=== PATIENT | female | born 2000 | race Caucasian/White ===

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

== ENCOUNTER → 2020-07-24 14:32 | Outpatient (CLI) | payer OTHER, SELFPAY ==
[2020-07-24 15:23] LABS: Basophils % 0.4 % (0.1-2.0); Eosinophils # 0.3 K/mm3 (0.0-0.4); Eosinophils % 2.7 % (0.1-12.0); Hematocrit 47.5 % (37.0-47.0); Hemoglobin 15.2 g/dL (12.2-16.2); Lymphocytes # 2.6 K/mm3 (0.7-4.5); Mean Corpuscular HGB Conc 32.1 g/dL (31.8-35.4); Mean Corpuscular Hemoglobin 30.1 pg (27.0-31.2); Mean Corpuscular Volume 93.9 fl (81-99); Mean Platelet Volume 9.3 fl (7.4-10.4); Monocytes # 0.5 K/mm3 (0.1-1.0); Monocytes % 4.9 % (1.7-9.3); Neutrophils % 64.1 % (37.0-80.0); Platelet Count 233 K/mm3 (142-424); Red Blood Count 5.06 M/mm3 (4.20-5.40); Red Cell Distribution Width 13.6 % (11.5-17.5); White Blood Count 9.4 K/mm3 (4.8-10.8)
[2020-07-24 15:28] LABS: Alanine Aminotransferase 21 U/L (12-78); Albumin Level 4.6 g/dl (3.5-5.0); Albumin/Globulin Ratio 1.6 (1.1-1.8); Alkaline Phosphatase 87 U/L (38-126); Anion Gap 12.1 mEq/L (5-15); Aspartate Amino Transferase 30 U/L (14-36); Bilirubin,Total 0.9 mg/dl (0.2-1.3); Blood Urea Nitrogen 12 mg/dl (7-17); Calcium 9.3 mg/dl (8.4-10.2); Carbon Dioxide 26 mmol/L (22.0-30.0); Chloride 104 mmol/L (98-107); Chol/HDL Ratio 3.4 (1-3.5); Cholesterol 170 mg/dl (140-200); Estimated Glomerular Filt Rate 106 ml/min (>60); GFR (African American) 128 ML/MIN (>60); Globulin 2.9 g/dL (1.3-3.2); Glucose 102 mg/dl (74-100); HDL Cholesterol 50 mg/dl (40-60); Potassium 4.1 mmoL/L (3.5-5.1); Sodium 138 mmol/L (136-145); Total Protein,Serum 7.5 g/dl (6.3-8.2); Triglycerides 283 mg/dl (30-150); VLDL Cholesterol 57 mg/dL (0-40)
[2020-07-24 15:39] LABS: Direct LDL Cholesterol 72.59 mg/dL (100-129)
[2020-07-24 15:44] LABS: Free T4 (Free Thyroxine) 0.98 ng/dl (0.78-2.19)
[2020-07-24 15:59] LABS: Thyroid Stimulating Hormone 4.45 uIU/mL (0.465-4.68)
[2020-07-24 16:36] LABS: Erythrocyte Sedimentation Rate 13 mm/hr (0-20)
== END ==
PROVIDERS: Visit Provider Emergency Medicine
DX: K82.9 Disease of gallbladder, unspecified (principal); E55.9 Vitamin D deficiency, unspecified
CPT/HCPCS: 80053; 80061; 82306; 84439; 84443; 85025; 85651

== ENCOUNTER → 2020-08-21 11:54 | Outpatient (CLI) | payer OTHER, SELFPAY ==
[2020-08-21 12:27] LABS: Urine Pregnancy, HCG Qual. Negative (Negative)
== END ==
PROVIDERS: Visit Provider Surgery
DX: Z01.812 Encounter for preprocedural laboratory examination (principal); Z20.822 Contact with and (suspected) exposure to COVID-19; K80.20 Calculus of gallbladder without cholecystitis without obstruction
CPT/HCPCS: 36415; 81025; U0003

== ENCOUNTER 2020-08-23 06:56 | Day surgery (SDC) | payer OTHER, SELFPAY ==
[2020-08-21 10:27] VITALS: BMI 32.1
[2020-08-23] VITALS (9 sets, daily range): BP systolic 105–141; BP diastolic 58–98; PULSE 77–105; RESP 18–24; TEMP 36.1–36.6; O2SAT 94–98
--- NOTE | 2020-08-23 08:05 | P.PN_ITS ---
[facility] Anesthesia Checklist - Patient Identification Patient Identification: Arm Band - Structural Data Admitted From: Home Planned Operative Procedure/s: Lap. cholecystectomy Consent for Planned Operative Procedure(s) Verified: Yes - NPO Status Verified Time NPO: 00:00 - Additional verifications Anesthesia Reactions: No Hx Blood Transfusions: No Blood Transfusion Reaction: No - Airway Assessment C-Spine Mobility Assessed: Yes TMJ Mobility Assessed: Yes Dentition: Good Dentition - Neurological Assessment Level of Consciousness: Awake Hx Seizures: No Numbness or tingling in extremities: No - Anesthesia Plan Anesthesia Risk discussed: Yes Anesthesia Plan: Verified ASA Class: II Anesthesia Type: General [facility] History I have reviewed the patient's past medical history: Yes Medical History: Reports:: Migraine Denies:: Cancer, Diabetes Mellitus Type 1, Diabetes Mellitus Type 2, Internal Pacemaker, MRSA, Pulmonary Embolism, Seizures, Transient Ischemic Attacks (TIA) *Have you ever received a pneumonia vaccine?: No *Have you received a flu vaccine this season?: No Other Medical History: Denies: Blood Transfusion Reaction Anesthesia experience/problems:: None Other Surgeries: Yes: No Previous Surgery. No: Pacemaker Amputation: No Fractures: No - *Social History Last grade of school completed: High school graduate Smoking Status: Current every day smoker Tobacco Type: cigarettes # Packs/Day (cigarettes): 1 Alcohol Intake: current Alcohol Intake Frequency:: holidays/special occasions only Substance Use Type: marijuana *Occupational Status:: employed Housing: house Household Members: family *Travel in the last 8 weeks: None Family Hx:: Diabetes, Stroke
--- NOTE | 2020-08-23 09:18 | HMH.OPNOTE ---
Date of procedure: 08/23/20 Pre-op Diagnosis:: Chronic calculus cholecystitis Post-op Diagnosis:: Same Procedure performed:: Laparoscopic cholecystectomy Surgeon:: Cedrick Courtney MD Anesthesia: [facility] Estimated blood loss (mL): 15 Operative findings:: Pericholecystic fat stranding and fairly severe infundibular thickening Operative note:: After informed consent was obtained, the patient was taken to the operating room and placed in the supine position. General anesthesia was induced and the abdomen was prepped and draped in a sterile fashion. After infiltration with local anesthetic an infraumbilical incision was made. A Veress needle was placed in position. The abdomen was insufflated. A 5 mm optical trocar was placed in position. Under direct visualization, a 12 mm trocar was placed in the subxiphoid position and 2 additional 5 mm trocars were placed in the right upper quadrant. The gallbladder was elevated up and over the liver margin. The tissue around the cystic duct was carefully dissected. 3 clips were placed proximally and the duct was transected with harmonic mitchell. Harmonic mitchell were then utilized to dissect the gallbladder away from the liver margin with careful attention to the control of the cystic artery. The gallbladder was placed in a retrieval bag and removed through the subxiphoid trocar site. The right upper quadrant was thoroughly irrigated. No active bleeding or bile leak was noted. Fascia at the subxiphoid trocar site was reapproximated utilizing the NeoClose device. The remaining trocars were removed. All wounds were irrigated and skin was closed with 4-0 Monocryl in a subcuticular fashion. Steri-Strips were applied. The patient's anesthetic agents were reversed and extubation was completed prior to transfer to recovery in stable condition. Condition: stable Disposition: PACU Specimens:: Gallbladder and contents Complications:: No immediate
--- NOTE | 2020-08-23 09:36 | P.PN_ITS ---
[facility] Anesthesia Record Part I Intake, IV Amount: 600 Estimated blood loss (mL): 100 Urine output (mL): 0 Blood Pressure: 105/58 SaO2: 94 Pulse Rate: 105 Respiratory Rate: 20 Temperature: 97.2 F Patient is:: Awake Stable to PACU at:: 09:29
--- NOTE | 2020-08-26 07:18 | P.PN_ITS ---
[facility] Anesthesia Record Part II Discharge Time: 09:59 Destination: Surgical Day Care (OP Surgery) PACU nurse assessment reviewed?: Yes Patient Condition:: Good Anesthesia Complications:: None Swallowing reflex intact?: Yes Cyanosis?: No Blood Pressure: 140/98 Pulse Rate: 86 Temperature: 97.6 F Mental Status: Alert & Oriented Pain level:: 0 Nausea and/or vomitting:: None Intake, IV Amount: 0
[2020-08-26 07:19] VITALS: BP 140/98; PULSE 86; TEMP 36.4
== END 2020-08-23 10:42 | disposition home or self-care (01) ==
LOC: OR 06:58
PROVIDERS: PCP Emergency Medicine; Visit Provider Surgery
PROC: 0FT44ZZ Resection of Gallbladder, Percutaneous Endoscopic Approach (ICD-10-PCS; CPT 47562; principal; 2020-08-23 08:30)
DX: K80.10 Calculus of gallbladder with chronic cholecystitis without obstruction (principal); G43.909 Migraine, unspecified, not intractable, without status migrainosus; Z83.3 Family history of diabetes mellitus; Z82.3 Family history of stroke
CPT/HCPCS: 47562; 96374; J0131; J2405

== ENCOUNTER 2020-08-27 15:38 | Emergency (ER) | payer OTHER, SELFPAY ==
[2020-08-27 15:38] VITALS: BP 147/87; PULSE 106; RESP 16; O2SAT 100
--- NOTE | 2020-08-27 16:03 | HMH.EDGENADL ---
ED Disposition Clinical Impression: Headache Qualifiers: Headache type: tension-type Headache chronicity pattern: acute headache Intractability: not intractable Qualified Code(s): G44.209 - Tension-type headache, unspecified, not intractable Disposition: Home, Self-Care Condition on Discharge: Good Instructions: DI for Headache Referrals: Provider,Referral, [Primary Care Provider] - - Critical Care Critical Care Time: No Attestation: On 08/27/20, the high probability of a clinically significant, sudden or life threatening deterioration of the following system(s) required my full and direct attention, intervention and personal management. The time I documented below is in addition to time spent performing reported procedures but includes the following listed in this critical care notation. Medical Decision Making - Medical Records Medical records reviewed: Yes: I reviewed the patient's medical records. - [place] Inquiry Pt receiving controlled substance: No Vital Signs: 08/27/20 16:04 08/27/20 16:14 08/27/20 16:31 Temperature 98.6 F Temperature Source Oral Pulse Rate 101 H 97 H Pulse Rate [Right] 100 H Respiratory Rate 18 Blood Pressure 147/95 H 128/67 Blood Pressure [Right Arm] 147/95 H Blood Pressure Mean 108 87 Blood Pressure Mean [Right Arm] 112 Blood Pressure Source [Right Arm] Automatic Cuff Blood Pressure Position [Right Arm] Sitting 02 Sat by Pulse Oximetry 100 100 100 - Lab Data Lab results reviewed: Yes: I reviewed the patient's lab results. Lab Results 08/27/20 15:51: Urine Color Yellow, Urine Appearance Sl cloudy, Urine pH 7.0, Ur Specific [place] 1.020, Urine Protein Trace, Urine Glucose (UA) Negative, Urine Ketones Negative, Urine Blood 2+, Urine Nitrate Negative, Urine Bilirubin Negative, Urine Urobilinogen 0.2, Ur Leukocyte Esterase Negative, Urine RBC 5-10, Urine WBC Occasional, Ur Squamous Epith Cells None, Urine Bacteria None 08/27/20 15:51: Urine HCG, Qual Negative 08/27/20 16:30: Sodium 137, Potassium 4.0, Chloride 100, Carbon Dioxide 27, Anion Gap 14.0, BUN 12, Creatinine 0.90, Estimated Creat Clear 129, Estimated GFR 79, Est GFR ( Amer) 96, Glucose 95, Calcium 9.2, Total Bilirubin 0.9, AST 41 H, ALT 47, Alkaline Phosphatase 78, Total Protein 7.8, Albumin 4.7, Globulin 3.1, Albumin/Globulin Ratio 1.5 Result diagrams: 08/27/20 16:30 Orders (Tests/Meds): ED MEDICATIONS Generic Name Dose Route Start Last Admin Trade Name Freq PRN Reason Stop Dose Admin Sodium Chloride 1,000 mls @ 500 mls/hr 08/27/20 16:15 08/27/20 16:37 Sod Chlor 0.9% 1000ml Bag IV 08/27/20 18:14 500 mls/hr .Q2H ONE Administration Discontinued Medications Generic Name Dose Route Start Last Admin Trade Name Freq PRN Reason Stop Dose Admin Diphenhydramine HCl 50 mg 08/27/20 16:02 08/27/20 16:36 Diphenhydramine 50mg/Ml Vial IV 08/27/20 16:03 50 mg ONCE ONE Administration Sodium Chloride 1,000 mls @ 500 mls/hr 08/27/20 16:15 Sod Chlor 0.9% 1000ml Bag IV 09/26/20 16:14 .Q2H DENIZ Ketorolac Tromethamine 30 mg 08/27/20 16:02 08/27/20 16:37 Ketorolac 30mg/Ml Vial IV 08/27/20 16:03 30 mg ONCE ONE Administration Metoclopramide HCl 10 mg 08/27/20 16:02 08/27/20 16:37 Metoclopramide Hcl 10mg/2ml Vial IVP 08/27/20 16:03 10 mg ONCE ONE Administration ORDERS Category Date Time Status Complete Blood Count Auto Diff Stat Lab 08/27/20 16:30 Received Medical Decision Narrative: Patient appears well. No red flag signs or symptoms of her headache, will treat symptomatically. No signs of meningitis or concern for subarachnoid at this time. Surgical sites appear well and no abdominal pain, this is likely not related to surgery, however will screen for electrolyte abnormalities and screen for liver injury following procedure. Labs unremarkable. Patient reports resolved symptoms on reassessment. Likely just tension headache.
[2020-08-27 16:04] VITALS: BP 147/95; PULSE 101; O2SAT 100
[2020-08-27 16:12] LABS: Microscopic, Urine URINE MICROSCOPIC (MICROSCOPIC)
[2020-08-27 16:14] VITALS: BP 147/95; PULSE 100; RESP 18; TEMP 37; O2SAT 100; BMI 31.2
[2020-08-27 16:15] VITALS: BP 147/95; PULSE 98; RESP 18; O2SAT 100
[2020-08-27 16:18] LABS: Appearance,Urine SL CLOUDY (Clear); Bilirubin,Urine Negative (Negative); Blood, Urine 2+ (Negative); Color,Urine YELLOW (Yellow); Glucose,Urine (UA) Negative (Negative); Ketones,Urine Negative (Negative); Leukocyte Esterase,Urine Negative (Negative); Nitrate,Urine Negative (Negative); Protein,Urine TRACE (Negative); Urobilinogen,Urine 0.2 EU/dl (0.2)
[2020-08-27 16:21] VITALS: BMI 31.2
[2020-08-27 16:23] LABS: Urine Pregnancy, HCG Qual. Negative (Negative)
[2020-08-27 16:31] VITALS: BP 128/67; PULSE 97; O2SAT 100
[2020-08-27 16:40] LABS: Basophils % 0.4 % (0.1-2.0); Eosinophils # 0.1 K/mm3 (0.0-0.4); Eosinophils % 0.9 % (0.1-12.0); Hematocrit 41.4 % (37.0-47.0); Hemoglobin 14.1 g/dL (12.2-16.2); Mean Corpuscular Hemoglobin 30.5 pg (27.0-31.2); Mean Corpuscular Volume 89.8 fl (81-99); Mean Platelet Volume 8.4 fl (7.4-10.4); Monocytes # 0.4 K/mm3 (0.1-1.0); Monocytes % 4.9 % (1.7-9.3); Neutrophils # 6.4 K/mm3 (1.8-7.8); Neutrophils % 81.7 % (37.0-80.0); Platelet Count 187 K/mm3 (142-424); Red Blood Count 4.61 M/mm3 (4.20-5.40); Red Cell Distribution Width 13.5 % (11.5-17.5); White Blood Count 7.9 K/mm3 (4.8-10.8)
[2020-08-27 16:42] LABS: WBC,Urine Occasional #/hpf (0-3)
[2020-08-27 16:47] LABS: Chloride 100 mmol/L (98-107); Sodium 137 mmol/L (136-145)
[2020-08-27 16:50] LABS: Alanine Aminotransferase 47 U/L (12-78); Albumin Level 4.7 g/dl (3.5-5.0); Albumin/Globulin Ratio 1.5 (1.1-1.8); Alkaline Phosphatase 78 U/L (38-126); Aspartate Amino Transferase 41 U/L (14-36); Bilirubin,Total 0.9 mg/dl (0.2-1.3); Blood Urea Nitrogen 12 mg/dl (7-17); Calcium 9.2 mg/dl (8.4-10.2); Carbon Dioxide 27 mmol/L (22.0-30.0); Creatinine Clearance Estimated 129 mL/min (50-200); Estimated Glomerular Filt Rate 79 ml/min (>60); GFR (African American) 96 ML/MIN (>60); Globulin 3.1 g/dL (1.3-3.2); Glucose 95 mg/dl (74-100); Total Protein,Serum 7.8 g/dl (6.3-8.2)
[2020-08-27 17:52] VITALS: BP 128/67; PULSE 96; RESP 16; TEMP 36.7
== END 2020-08-27 17:40 | disposition home or self-care (01) ==
PROVIDERS: Emergency Provider Emergency Medicine
DX: G44.209 Tension-type headache, unspecified, not intractable (principal); F17.210 Nicotine dependence, cigarettes, uncomplicated
CPT/HCPCS: 80053; 81001; 81025; 85025; 96365; 96375; 99282

== ENCOUNTER 2023-02-01 13:31 | Emergency (ER) | payer OTHER, SELFPAY ==
[2023-02-01 13:55] VITALS: BP 153/97; PULSE 81; RESP 20; TEMP 36.9; O2SAT 98; BMI 28.8
--- NOTE | 2023-02-01 14:36 | EXP.UTC ---
Discharge Plan Disposition Patient Disposition: Home, Self-Care Condition: Good Prescriptions Prescriptions: New amoxicillin 875 mg tablet 875 mg PO BID Qty: 20 0RF fluticasone propionate [Flonase Allergy Relief] 50 mcg/actuation spray,suspension 1 - 2 spray intranasal DAILY Qty: 16 0RF Rx Instructions: administer into each nostril daily Referrals Follow up/Referrals: Edgar Lopez MD [Primary Care Provider] - See instructions Activity Restrictions/Add. Instructions Additional Instructions/Restrictions: *Monitor Temp, Over the counter Motrin or Tylenol as directed/as needed Tylenol every 4 hours and Motrin every 6 hours (as long as your family doctor has told you that you can take it) for fever or pain. and straight to ER if unable to lower temp less than 101.0 after medication given Take medication as prescribed *Sleep elevated *Humidifier/Vaporizer *Flonase 2 sprays in each nostril daily but be aware that it may take 2-3 days before you notice improvement Follow up IMMEDIATELY for new or worsening symptoms or no Noticeable improvement over the next 48-72 hours. 911 for difficulty breathing or swallowing Clinical Impressions Clinical Impression: Otitis media Qualifiers: Otitis media type: unspecified Laterality: left Qualified Code(s): H66.92 - Otitis media, unspecified, left ear Instructions Patient Instructions: Ear Infections (Alternative Therapy), Middle Ear Infection Discharge ED Provider: Diane Sood [facility] General Stated complaint: congestion, pain in left ear Mode of Arrival: Ambulatory Source of Information: Patient Limitations: No Limitations Time Seen by Provider: 02/01/23 14:36 Description of Symptoms (Recalled from Triage Doc. by RN): PATIENT C/O LEFT EAR PAIN AND RUNNY NOSE HEENT Symptoms (Recalled from RN notes): Yes Resp Symptoms (Recalled from RN notes): No Skin Symptoms (Recalled from RN notes): No MS Symptoms (Recalled from RN notes): No Functional Status (Recalled from RN notes): WNL History of Present Illness Provider Complaint: Patient states for the last week she has been having pain in her left ear and runny nose States today she feels like she cannot hear out of her left ear very well so she came in to get it checked Related Data Previous Rx's Medication Instructions Recorded amoxicillin 875 mg tablet 875 mg PO BID #20 tabs 02/01/23 fluticasone propionate 50 1 - 2 spray intranasal DAILY #16 02/01/23 mcg/actuation nasal grams spray,suspension (Flonase Allergy Relief) Allergies Allergy/AdvReac Type Severity Reaction Status Date / Time No Known Allergies Allergy Verified 09/04/20 13:47 Worker's Comp Is this a Worker's Comp case?: No [facility] Disclaimer: The information contained in this section may have been updated after the patient was seen, as this information can be updated by other users. Social History Smoking Status: Current every day smoker tobacco type: cigarettes packs per day: 1 second hand exposure: Yes alcohol intake: current substance use type: marijuana current occupational status: employed Travel in the last 8 weeks: None household members: family housing: house current occupational exposures/hazards: No caffeine: Yes ROS Obtained: Yes All systems reviewed & no additional complaints except as documented and Yes Systems reviewed as appropriate & no additional complaints except as documented Constitutional Constitutional: Reports system reviewed and no additional complaints, except as documented and Reports as per HPI ENT Ears, Nose, Mouth, and Throat: Reports system reviewed and no additional complaints, except as documented, Reports as per HPI, Reports otalgia, Reports nasal congestion and Reports nasal discharge Cardiovascular Cardiovascular: Reports system reviewed and no additional complaints, except as documented and Reports as per HPI Respiratory Respiratory: Reports system revi
[2023-02-01 15:04] VITALS: BP 153/97; PULSE 81; RESP 20; TEMP 36.9; O2SAT 98
== END 2023-02-01 15:07 | disposition home or self-care (01) ==
PROVIDERS: Emergency Provider Nurse Practitioner; PCP Internal Medicine Adolescent Medicine
DX: H66.92 Otitis media, unspecified, left ear (principal); R09.81 Nasal congestion; F17.210 Nicotine dependence, cigarettes, uncomplicated
CPT/HCPCS: 99204; 99212; G0463

== ENCOUNTER 2023-03-02 09:44 | Emergency (ER) | payer OTHER, SELFPAY ==
[2023-03-02 09:46] VITALS: BP 144/100; PULSE 83; RESP 16; TEMP 37.2; O2SAT 98; BMI 25.0
[2023-03-02 10:05] VITALS: BP 140/95
--- NOTE | 2023-03-02 10:13 | HMH.EDGENADL ---
Discharge Plan Disposition Patient Disposition: Home, Self-Care Prescriptions Prescriptions: New ciprofloxacin HCl 0.3 % drops See Rx Instructions .ROUTE .COMPLEX Qty: 5 0RF Rx Instructions: put 1-2 drps in affected eye(s) every 2hr up to 8 times/day x2days; then 4 times/day x5days [id number] [Bromfed DM] 2-30-10 mg/5 mL syrup 5 ml PO Q6H PRN (Reason: cold symptoms) Qty: 118 0RF ondansetron 4 mg tablet,disintegrating 4 mg PO Q8H PRN (Reason: nausea and vomiting) 4 Days Qty: 12 0RF No Action amoxicillin 875 mg tablet 875 mg PO BID Qty: 20 0RF fluticasone propionate [Flonase Allergy Relief] 50 mcg/actuation spray,suspension 1 - 2 spray intranasal DAILY Qty: 16 0RF Rx Instructions: administer into each nostril daily Referrals Follow up/Referrals: Edgar Lopez MD [Primary Care Provider] - See instructions Activity Restrictions/Add. Instructions Additional Instructions/Restrictions: At this time it was felt you are safe to be discharged home. If new or worsening symptoms please do not hesitate to return the emergency department. If symptoms persist please follow-up with your family doctor as you are able. Please take your medications as prescribed. Clinical Impressions Clinical Impression: Acute bacterial conjunctivitis, Acute viral syndrome, Abdominal pain Discharge ED Provider: Derrick Ramos General Adult HPI General Chief complaint: Eye Problems Stated complaint: fever, eye irritaion Time Seen by Provider: 03/02/23 09:49 Mode of Arrival: Ambulatory Source of Information: Patient Limitations: No Limitations Description of Symptoms (Recalled from ER Triage Doc. by RN): pt presents with c/o bialteral eye redness and gunk when she wakes up. pt reports abdominal pain ongoing for 1 days, but pt reports she has not had a bm for 3-4 days. pt reports sore throat, and feeling hot yesterday but did not take her temperature. History of Present Illness HPI narrative: Patient is a 23-year-old female with past medical history of previous cholecystectomy who presents emergency department for multiple complaints. Patient states that she has gunk on her right eye holding it matted shut every morning for the last few days with associated sore throat. She has also had subacute right upper quadrant pain that is worse with p.o. intake. No vomiting. Sick contacts with flu at home. No other acute complaints at this time. Related Data Previous Rx's Medication Instructions Recorded amoxicillin 875 mg tablet 875 mg PO BID #20 tabs 02/01/23 fluticasone propionate 50 1 - 2 spray intranasal DAILY #16 02/01/23 mcg/actuation nasal grams spray,suspension (Flonase Allergy Relief) [id number]-ejmjkkhnvnileit-IX 5 ml PO Q6H PRN cold symptoms #118 03/02/23 2 mg-30 mg-10 mg/5 mL oral syrup mL (Bromfed DM) ciprofloxacin HCl 0.3 % eye drops See Rx Instructions ophthalmic 03/02/23 (eye) .COMPLEX #5 mL ondansetron 4 mg disintegrating 4 mg PO Q8H PRN nausea and 03/02/23 tablet vomiting 4 days #12 tabs Allergies Allergy/AdvReac Type Severity Reaction Status Date / Time No Known Allergies Allergy Verified 09/04/20 13:47 [facility] Disclaimer: The information contained in this section may have been updated after the patient was seen, as this information can be updated by other users. Social History Smoking Status: Current every day smoker tobacco type: cigarettes packs per day: 1 second hand exposure: Yes alcohol intake: current substance use type: marijuana current occupational status: employed Travel in the last 8 weeks: None household members: family housing: house current occupational exposures/hazards: No caffeine: Yes ROS Obtained: Yes Systems reviewed as appropriate & no additional complaints except as documented Physical Exam General General appearance: alert and in no apparent distress Head Head exam: atraumatic and
--- NOTE | 2023-03-02 10:16 | CT_ITS ---
FINAL REPORT TECHNIQUE: After the administration of intravenous contrast, axial images were obtained through the abdomen and pelvis by computed tomography. The study was performed with techniques to keep radiation dose as low as reasonably achievable, (ALARA). Individual dose reduction techniques using automated exposure control or adjustment of mA and/or kV according to the patient's size were employed. CLINICAL HISTORY: prev ccy, RUQ pain FINDINGS: Abdomen: The lung bases are clear. The liver parenchyma is homogeneous. The gallbladder is absent. The spleen, pancreas, adrenals and kidneys appear unremarkable. The aorta is normal in caliber. There is no free fluid or adenopathy. Pelvis: The appendix is not identified. The uterus is anteverted. An IUD is present. The ovaries are mildly enlarged. The urinary bladder is unremarkable. There is no free fluid or adenopathy. IMPRESSION: Mildly enlarged ovaries. Reviewed, Interpreted and Dictated by Lonnie Taveras MD Transcribed by Stephani Granado Authenticated and [facility]
[2023-03-02 10:21] LABS: Microscopic, Urine URINE MICROSCOPIC (MICROSCOPIC)
[2023-03-02 10:22] LABS: Appearance,Urine CLEAR (Clear); Blood, Urine 2+ (Negative); Color,Urine YELLOW (Yellow); Glucose,Urine (UA) Negative (Negative); Ketones,Urine 1+ (Negative); Leukocyte Esterase,Urine 1+ (Negative); Nitrate,Urine Negative (Negative); Protein,Urine TRACE (Negative); Specific Gravity, Urine 1.025 (1.005-1.030); Urobilinogen,Urine 0.2 EU/dl (0.2)
[2023-03-02 10:28] LABS: Bilirubin,Urine 1+ (Negative)
[2023-03-02 10:31] LABS: Bacteria,Urine 1+ /lpf; RBC,Urine Occasional #/hpf (0-3)
[2023-03-02 10:45] LABS: Basophils % 0.5 % (0.1-2.0); Eosinophils # 0.2 K/mm3 (0.0-0.4); Eosinophils % 2.1 % (0.1-12.0); Hematocrit 44.6 % (37.0-47.0); Hemoglobin 14.9 g/dL (12.2-16.2); Lymphocytes # 1.3 K/mm3 (0.7-4.5); Lymphocytes % 19.5 % (10-50); Mean Corpuscular HGB Conc 33.4 g/dL (31.8-35.4); Mean Corpuscular Hemoglobin 31.7 pg (27.0-31.2); Mean Corpuscular Volume 94.9 fl (81-99); Mean Platelet Volume 7.8 fl (7.4-10.4); Monocytes # 0.3 K/mm3 (0.1-1.0); Neutrophils # 5.1 K/mm3 (1.8-7.8); Neutrophils % 73.8 % (37.0-80.0); Platelet Count 182 K/mm3 (142-424); White Blood Count 6.9 K/mm3 (4.8-10.8)
[2023-03-02 10:52] LABS: Strep Scrn Group A (Rapid) Negative (Negative)
[2023-03-02 10:53] LABS: Chloride 102 mmol/L (98-107); Potassium 3.4 mmoL/L (3.5-5.1); Sodium 139 mmol/L (136-145)
[2023-03-02 10:55] LABS: Alanine Aminotransferase 24 U/L (12-78); Alkaline Phosphatase 79 U/L (38-126); Aspartate Amino Transferase 34 U/L (14-36); Bilirubin,Total 0.4 mg/dl (0.2-1.3); Blood Urea Nitrogen 12 mg/dl (7-17); Creatinine Clearance Estimated 116 mL/min (50-200); Estimated Glomerular Filt Rate 88 ml/min (>60); GFR (African American) 107 ML/MIN (>60)
[2023-03-02 10:56] LABS: Albumin Level 4.5 g/dl (3.5-5.0); Albumin/Globulin Ratio 1.5 (1.1-1.8); Anion Gap 11.4 mEq/L (5-15); Calcium 8.5 mg/dl (8.4-10.2); Carbon Dioxide 29 mmol/L (22.0-30.0); Globulin 3.1 g/dL (1.3-3.2); Glucose 101 mg/dl (74-100); Lipase 55 U/L (23-300); Total Protein,Serum 7.6 g/dl (6.3-8.2)
[2023-03-02 11:22] LABS: HCG Qualitative, Serum Negative (Negative)
[2023-03-02 11:44] LABS: Coronavirus 19, PCR Not Detected (NotDetected); Influenza A, PCR Not Detected (NotDetected); Influenza B, PCR Not Detected (NotDetected)
--- NOTE | 2023-03-02 11:48 | PC.NURSE ---
pt back to room from ct
--- NOTE | 2023-03-02 13:16 | PC.NURSE ---
call made to radiology to check on status of scans. radiology supervisor reports scan are in locked status.
[2023-03-02 13:40] VITALS: BP 135/87; PULSE 70; RESP 15; TEMP 36.7
--- NOTE | 2023-03-04 14:38 | PC.NURSE ---
Urine final result reported mixed eddie. Dr. Smith concluded that the specimen is contaminated
--- NOTE | 2023-03-05 19:27 | PC.NURSE ---
left a message on messenger to return call to ED.
--- NOTE | 2023-03-05 19:28 | PC.NURSE ---
received cb from patient.
--- NOTE | 2023-03-05 19:35 | PC.NURSE ---
call [facility] and spoke with pharmacist. [facility] 645/125 1 po bid prescription called in under Genesis Ramos MD
== END 2023-03-02 13:41 | disposition home or self-care (01) ==
PROVIDERS: Emergency Provider Emergency Medicine; PCP Internal Medicine Adolescent Medicine
DX: R10.11 Right upper quadrant pain (principal); H10.9 Unspecified conjunctivitis; J02.9 Acute pharyngitis, unspecified; B34.9 Viral infection, unspecified; F17.210 Nicotine dependence, cigarettes, uncomplicated
CPT/HCPCS: 74177; 80053; 81001; 83690; 84703; 85025; 87086; 87430; 87636; 96374; 96375; 99285; J0131; J2405; Q9967

== ENCOUNTER 2023-03-28 11:07 | Emergency (ER) | payer OTHER, SELFPAY ==
[2023-03-28 11:40] VITALS: BP 125/73; PULSE 93; RESP 18; TEMP 36.8; O2SAT 96; BMI 26.9
--- NOTE | 2023-03-28 12:00 | ED_ITS ---
Discharge Plan Disposition Patient Disposition: Home, Self-Care Condition: Good Prescriptions Prescriptions: New methylprednisolone 4 mg Tablets,Dose Pack 4 mg PO DIRECTED 6 Days Qty: 21 0RF Rx Instructions: Take 1 pack as directed for 6 days ondansetron 4 mg Tablet,Disintegrating 4 mg PO Q8H PRN (Reason: Nausea) Qty: 12 0RF cefdinir 300 mg capsule 300 mg PO BID Qty: 20 0RF No Action amoxicillin 875 mg tablet 875 mg PO BID Qty: 20 0RF fluticasone propionate [Flonase Allergy Relief] 50 mcg/actuation spray,suspension 1 - 2 spray intranasal DAILY Qty: 16 0RF Rx Instructions: administer into each nostril daily ciprofloxacin HCl 0.3 % drops See Rx Instructions .ROUTE .COMPLEX Qty: 5 0RF Rx Instructions: put 1-2 drps in affected eye(s) every 2hr up to 8 times/day x2days; then 4 times/day x5days [id number] [Bromfed DM] 2-30-10 mg/5 mL syrup 5 ml PO Q6H PRN (Reason: cold symptoms) Qty: 118 0RF ondansetron 4 mg tablet,disintegrating 4 mg PO Q8H PRN (Reason: nausea and vomiting) 4 Days Qty: 12 0RF Referrals Follow up/Referrals: Edgar Lopez MD [Primary Care Provider] - See instructions Activity Restrictions/Add. Instructions Additional Instructions/Restrictions: Drink plenty of fluids. Take tylenol or ibuprofen for pain or fever. The antibiotics that you are on now and start the new medications. Follow up with your regular doctor. GO TO THE ER FOR ANY WORSENING SYMPTOMS Clinical Impressions Clinical Impression: Strep throat Instructions Patient Instructions: Strep Throat, DI for Strep Throat Discharge ED Provider: Giorgi Zhao [facility] General Stated complaint: st burning in abd congestion runny nose Time Seen by Provider: 03/28/23 12:00 History of Present Illness Provider Complaint: She was diagnosed with strep throat last week and started on antibiotics. She states that she is not getting any better and she is also having n/v now. Related Data Previous Rx's Medication Instructions Recorded amoxicillin 875 mg tablet 875 mg PO BID #20 tabs 02/01/23 fluticasone propionate 50 1 - 2 spray intranasal DAILY #16 02/01/23 mcg/actuation nasal grams spray,suspension (Flonase Allergy Relief) [id number] 5 ml PO Q6H PRN cold symptoms #118 03/02/23 2 mg-30 mg-10 mg/5 mL oral syrup mL (Bromfed DM) ciprofloxacin HCl 0.3 % eye drops See Rx Instructions ophthalmic 03/02/23 (eye) .COMPLEX #5 mL ondansetron 4 mg disintegrating 4 mg PO Q8H PRN nausea and 03/02/23 tablet vomiting 4 days #12 tabs cefdinir 300 mg capsule 300 mg PO BID #20 caps 03/28/23 methylprednisolone 4 mg tablets in 4 mg PO DIRECTED 6 days #21 tabs 03/28/23 a dose pack ondansetron 4 mg disintegrating 4 mg PO Q8H PRN Nausea #12 tabs 03/28/23 tablet Allergies Allergy/AdvReac Type Severity Reaction Status Date / Time No Known Allergies Allergy Verified 09/04/20 13:47 [facility] Disclaimer: The information contained in this section may have been updated after the patient was seen, as this information can be updated by other users. Social History Smoking Status: Current every day smoker tobacco type: cigarettes packs per day: 1 second hand exposure: Yes alcohol intake: current substance use type: marijuana current occupational status: employed Travel in the last 8 weeks: None household members: family housing: house current occupational exposures/hazards: No caffeine: Yes ROS Obtained: Yes All systems reviewed & no additional complaints except as documented Constitutional Constitutional: Reports chills and Reports fever(s) Eyes Eyes: Denies eye discharge ENT Ears, Nose, Mouth, and Throat: Reports as per HPI Cardiovascular Cardiovascular: Denies chest pain Respiratory Respiratory: Denies chest congestion and Reports cough Gastrointestinal Gastrointestingal: Reports nausea; Denies abdominal pain, constipation, cramping, diarrhea or vomiting Musculoskeletal Musculoskeletal: Denies arthralgias Integumentary/Breasts Skin/Breast: Denies rash Neurologic Neurologic: Denies paresthesias Physical Exam General General appearance: alert and in no apparent distress Head Head exam: atraumatic, normocephalic and normal inspection Eye Eye exam: Present normal appearance, PERRL and EOMI ENT ENT exam: Present mucous membranes moist and normal external ear exam Expanded ENT Exam TM/Canal exam: Bilateral TM: erythema and bulging Nose exam: Absent sinus tenderness Mouth exam: Present normal external inspection; Absent drooling Teeth exam: Present normal inspection Throat exam: Present tonsillar erythema, tonsillomegaly and tonsillar exudate Neck Neck exam: Present normal inspection, full ROM and trachea midline; Absent tenderness, meningismus or lymphadenopathy Chest Chest inspection: Present normal inspection and symmetric chest wall rise; Absent tenderness Respiratory Respiratory exam: Present normal lung sounds bilaterally; Absent respiratory distress, wheezes, stridor or accessory muscle use Cardiovascular Cardiovascular exam: Present regular rate and normal rhythm; Absent systolic murmur or diastolic murmur Abdominal Exam Abdominal exam: Present soft and normal bowel sounds; Absent distention, tendern ess, guarding, rebound or rigidity Extremities Exam Extremities exam: Present normal inspection and normal capillary refill; Absent calf tenderness Back Exam Back exam: Present normal inspection and full ROM; Absent tenderness, CVA tenderness (R) or CVA tenderness (L) Neurological Exam Neurological exam: Present alert, oriented X3 and CN II-XII intact Psychiatric Psychiatric exam: Present normal affect and normal mood Skin Skin exam: Present warm, dry, intact and normal color Medical Decision Making Medical Records Medical records reviewed: No I reviewed the patient's medical records. [place] Inquiry Pt receiving controlled substance: No Lab Data Lab results reviewed: Yes I reviewed the patient's lab results.
[2023-03-28 12:13] LABS: UTC Strep Screen (Rapid) Negative (Negative)
[2023-03-28 12:25] VITALS: BP 125/73; PULSE 93; RESP 18; TEMP 36.8; O2SAT 96
== END 2023-03-28 12:25 | disposition home or self-care (01) ==
PROVIDERS: Emergency Provider Nurse Practitioner Family; PCP Internal Medicine Adolescent Medicine
DX: J02.0 Streptococcal pharyngitis (principal); R07.0 Pain in throat; R11.2 Nausea with vomiting, unspecified; F17.210 Nicotine dependence, cigarettes, uncomplicated
CPT/HCPCS: 87880; 99212; 99214; G0463